=== PATIENT | male | born 1975 | race Caucasian/White ===

== ENCOUNTER 2016-08-05 17:56 | Emergency (ER) | payer MEDICARE, OTHER ==
[~2016-08-05 17:56] MED LIST: ALBUTEROL2.5 MG/0.5 INH; ALPRAZOLAM1 MG PO; B COMPLEX1 CA1 PO; BUDESONIDE0.5 MG/2 M INH; EPZICOM PO; FLONASE 0.05% N16 G1; GABAPENTIN300 MG PO; HYDROCODON-ACE1 EAC7 PO; IPRAT-ALBUT 0.5-3 ML INH; ISENTRESS400 MG PO; LOPERAMIDE HCL2 M1 PO; MONTELUKAST SOD10 MG PO; MUCINEX D ER T1 EAC1 PO; PRENATAL1 TA1 PO; SEROQUEL50 M1 PO; SPIRIVA18 MCG INH; TRIZIVIR PO; VITAMIN B12-FO1 EACH PO
== END 2016-08-05 18:17 | disposition home or self-care (01) ==
LOC: CED 17:56
DX: S61.412A Laceration without foreign body of left hand, initial encounter (principal); Z88.1 Allergy status to other antibiotic agents; F17.210 Nicotine dependence, cigarettes, uncomplicated; W45.8XXA Other foreign body or object entering through skin, initial encounter; Y92.009 Unspecified place in unspecified non-institutional (private) residence as the place of occurrence of the external cause
CPT/HCPCS: 12001; 99283